=== PATIENT | male | born 1960 | race Caucasian/White ===

== ENCOUNTER 2020-01-05 10:45 | Emergency (ER) | payer SELFPAY ==
[2020-01-05 10:52] VITALS: BP 180/99; PULSE 63; RESP 18; TEMP 36.9; O2SAT 99; BMI 24.3
[2020-01-05 11:15] VITALS: O2SAT 98
--- NOTE | 2020-01-05 11:18 | ECG_ITS ---
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 Measurements Intervals [place] Rate: 64 P: 37 [place]: 168 QRS: -16 QRSD: 96 T: 10 QT: 381 QTc: 393 Interpretive Statements SINUS RHYTHM INCOMPLETE RIGHT BUNDLE BRANCH BLOCK [90+ ms QRS DURATION, TERMINAL R IN V1/V2, 40+ ms S IN I/aVL/V4/V5/V6] No previous ECG available for comparison Electronically Signed On 01-05-2020 20:13:42 CDT by Lenore Dill M.D. [id number]
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
--- NOTE | 2020-01-05 11:20 | PC.NURSE ---
pt also c/o right hip pain and right calf pain
--- NOTE | 2020-01-05 11:32 | PC.NURSE ---
pt to CT by katherin
[2020-01-05 11:42] LABS: Basophils # 0.1 10^3/uL (0.0-0.1); Basophils % 1.1 %; Eosinophils # 0.6 10^3/uL (0.0-0.8); Eosinophils % 8.7 %; Hematocrit 44.3 % (42.0-52.0); Hemoglobin 14.5 g/dL (11.7-16.6); Lymphocytes # 2.2 10^3/uL (0.8-4.8); Mean Corpuscular HGB Conc 32.7 g/dL (30.0-36.0); Mean Corpuscular Hemoglobin 32.3 pg (28.0-34.0); Mean Corpuscular Volume 98.7 fL (80-94); Monocytes # 0.5 10^3/uL (0.2-0.9); Monocytes % 7.5 %; Neutrophils # 3.15 10^3/uL (1.8-7.7); Neutrophils % 48.1 %; Nucleated Red Blood Cells % 0 %; Platelet Count 304 10^3/cmm (130-400); Red Blood Count 4.49 10^6/uL (4.1-5.3); Red Cell Distribution Width 12.2 % (12.1-15.1); White Blood Count 6.6 10^3/uL (4.0-10.0)
[2020-01-05 12:03] LABS: Alanine Aminotransferase 16 U/L (0-41); Albumin Level 4.7 g/dL (3.5-5.2); Alkaline Phosphatase 59 IU/L (40-130); Anion Gap 12.7 (5-19); Aspartate Amino Transferase 14 U/L (0-40); Blood Urea Nitrogen 11 mg/dL (8-23); Calcium 9.3 mg/dL (8.5-10.5); Carbon Dioxide 26 mmol/L (22-29); Chloride 104 mmol/L (98-107); Globulin 2.4 g/dL (1.3-4.6); Glomerular Filtration Rate 98.6 mL/min (90-130); Glucose 136 mg/dL (65-115); Osmolality Calculated 286 mOsm/kg (285-295); Potassium 3.7 mmol/L (3.5-5.1); Sodium 139 mmol/L (136-145); Total Bilirubin 0.3 mg/dL (0.15-1.2); Total Protein 7.1 g/dL (6.6-8.7)
[2020-01-05 12:04] LABS: Troponin(5th) Baseline 9 ng/L (0-15)
[2020-01-05 13:15] VITALS: BP 142/95; PULSE 59; RESP 23; O2SAT 99
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
== END 2020-01-05 13:15 | disposition home or self-care (01) ==
PROVIDERS: Emergency Provider Physician Assistant
DX: I10 Essential (primary) hypertension (principal); G89.29 Other chronic pain; M54.2 Cervicalgia; M54.9 Dorsalgia, unspecified; M25.551 Pain in right hip; R07.89 Other chest pain; V03.90XA Pedestrian on foot injured in collision with car, pick-up truck or van, unspecified whether traffic or nontraffic accident, initial encounter
CPT/HCPCS: 12345; 36415; 71045; 72100; 72125; 73502; 80053; 84484; 85025; 93005; 99283

== ENCOUNTER 2020-03-09 12:17 | Emergency (ER) | payer SELFPAY ==
[2020-03-09 12:27] VITALS: BP 146/95; PULSE 98; RESP 18; TEMP 36.6; O2SAT 97; BMI 26.3
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
--- NOTE | 2020-03-09 12:57 | ED_ITS ---
HPI - Wound/Laceration General: Chief Complaint: Wound/Laceration Stated Complaint: smashed finger Time Seen by Provider: 03/09/20 12:32 Source: patient Mode of arrival: ambulatory Limitations: no limitations History of Present Illness: HPI narrative: Patient was working with a 9 pound, and he stated that he smashed his finger between the hammer and a wedge. He has a laceration to the right middle finger. There is some pain there but he has full range of movement. He is not up-to-date on his tetanus. Onset (ago): minute(s) (30) Patient tetanus UTD: No Context: accidental Associated symptoms: Denies chills, fever(s), nausea or vomiting Review of Systems General: Reports: 10 or more systems reviewed and unremarkable except in HPI and below Const: Denies: fever(s), chills or body aches Eyes: Denies: change in vision or blurry vision ENMT: Denies: throat pain, enlarged tonsils, odynophagia, hoarseness, mouth pain or swelling of lips/tongue Card: Reports: chest pain; Denies: palpitations, irregular heart rhythm, edema or swelling of feet/ankles Resp: Denies: dyspnea, productive cough or non-productive cough GI: Denies: abdominal pain, nausea or vomiting : Denies: flank pain, dysuria, urinary frequency, urinary urgency or urinary hesitancy Musc: Denies: neck pain, back pain or extremity swelling Skin/Breast: Reports: other (laceration to finger); Denies: rash, pruritus or erythema Neuro: Denies: headache(s), numbness in extremities or weakness in extremities Endo: Denies: polyuria, polydipsia or tired all the time Physical Exam Const: COMMON NORMALS: no acute distress, average body habitus, patient oriented x3, no limitations, healthy appearing, alert and well nourished HENMT: COMMON NORMALS: normocephalic, atraumatic and moist oral mucous membranes HEAD & SCALP: normocephalic and atraumatic Neck/C-Spine: COMMON NORMALS: no meningeal signs and no JVD Resp: COMMON NORMALS: normal respiratory effort, No retractions, No use of accessory muscles, clear to auscultation bilaterally and percussion normal AUSCULTATION: clear to auscultation bilaterally PERCUSSION: percussion normal Cardio: COMMON NORMALS: no JVD, regular rate, regular rhythm, S1 normal heart sound present, S2 normal heart sound present, No gallops present (Cardio), No clicks present (Cardio), No murmurs present (Cardio), No rub (Cardio) and Peripheral pulses 2+ throughout RATE: regular rate RHYTHM: regular rhythm HEART SOUNDS: S1 normal heart sound present and S2 normal heart sound present PERIPHERAL PULSES: Peripheral pulses 2+ throughout GI: COMMON NORMALS: Normal to inspection, nondistended, normoactive bowel sounds present, Soft to palpation, non-tender, No hepatosplenomegaly present, no masses and no bruits PALPATION: Yes Soft to palpation and Yes No hepatosplenomegaly present Extremity: COMMON NORMALS: normal to inspection, full ROM, capillary refill normal, no calf tenderness and no pedal edema OTHER: Has a laceration on his left middle finger. It is a complex laceration with 2 longitudinal lacerations and a skin flap in between them. The base of the flap is distal. Finger is swollen. Vascular status is intact, he does have some numbness on the finger. There is significant tenderness Neuro: COMMON NORMALS: patient oriented x3 SENSORIUM/ORIENTATION: Yes alert MENINGEAL SIGNS: Yes no meningeal signs Skin: COMMON NORMALS: no rashes or lesions noted, no wounds, turgor normal, no jaundice, no petechiae and no mottling GENERAL SKIN EXAM: no rashes or lesions noted and turgor normal Procedures Laceration Laceration 1: Site: hand (finger) Side (If applicable): left Size (cm): 4 Description: linear and flap Depth: simple, single layer Local Anesthetic: lidocaine 1% Amount of anesthesia used (mL): 4 Pre-repair: wound explored and irrigated extensively Skin layer closed with: nylon Size (cm): 4-0 Number of sutures: 6 Technique: simple, interrupted Nerve Block Nerve Block 1: Time out performed: Yes Local Anesthetic: lidocaine 1% Side: left Nerve Blocks: digital Procedure Successful: Yes Patient Tolerated Procedure: well Complications: none Additional Comments: Left middle finger digital block Course ED course: 59-year-old male with an open fracture of his left middle finger. Wound was thoroughly cleaned and irrigated, and the wound closed. 2. Difficult closure. He was also given tetanus toxoid and IV antibiotics here in the emergency department. He was discharged home on oral antibiotics and pain medication. He is to follow-up with a hand surgeon. The patient made several comments that he is unlikely to follow-up but he was advised strongly to do so to prevent complications from his injury. Vital Signs: Vital signs: Vital Signs Temperature 97.8 F 03/09/20 12:27 Pulse Rate 95 03/09/20 15:30 Respiratory Rate 18 03/09/20 12:27 Blood Pressure 140/89 03/09/20 15:30 Pulse Oximetry 96 03/09/20 15:30 MDM - Wound/Laceration MDM Narrative: Medical decision making narrative: Patient with an open fracture of his left middle finger. Wound was irrigated thoroughly, closed with sutures and he was given IV antibiot ics in the emergency department. He was discharged home on oral antibiotics pain medication. He is to follow-up with the hand surgeon as soon as possible. Imaging Data^: Xray Ortho: Radiologist's impression: [place] [address] XRay Report Signed Patient: Saul Ho #: [id number] : 1960Acct#:[id number] Age/Sex: 59 / MADM Date: 03/09/20 [facility] Attending Dr: Ordering Provider/Ordering MD: Katarina [place] [facility] [place] Service: 03/09/20 Procedure(s): XR hand LT 2V [id number] Accession Number(s): [id number] Report Number: [id number] PROCEDURE INFORMATION: Exam: XR Left Hand Exam date and time: 03/09/2020 12:38 PM Age: 59 years old Clinical indication: Injury or trauma; Initial encounter; Crushing; Left; Middle finger TECHNIQUE: Imaging protocol: XR Left hand. Views: 1 or 2 views. COMPARISON: No relevant prior studies available. FINDINGS: Bones/joints: There is a comminuted fracture of the distal left 3rd phalanx. The fracture does not extend to the articular surface. There is deformity of the left 3rd metacarpal head which is likely old. Soft tissues: Normal. XR/XR hand LT 2V [id number] IMPRESSION: There is a comminuted fracture of the distal left 3rd phalanx. Dictated By:Consuelo Miller MD Signed By:Consuelo Miller MDSigned Date/Time:03/09/20 1430 DD/ 1428 Discharge Plan Discharge Patient Disposition: Home Clinical Impression: Open fracture of distal phalanx, Finger laceration Condition: Stable Prescriptions: [place] 5-325 mg tablet 1 tab PO Q8H PRN (Reason: fracture finger) Qty: 20 RF: 0 Bactrim DS 800-160 mg tablet 1 tab PO BID 7 Days Qty: 14 RF: 0 Continued Allergy Relief(diphenhydramin) 1 tab PO DAILY RF: 0 amlodipine 5 mg tablet 5 mg PO DAILY Qty: 30 RF: 0 Discharge Orders: Discharge Order (Routine); Ordered 03/09/20 Ordered By: Katarina Jackson Discharge Diet: Usual diet Discharge Activity: Increase activity as tolerated Patient Instructions: Finger Fracture (ED), Finger Laceration (ED) Activity Restrictions/Additional Instructions: Return for any new or worsening symptoms. You will be contacted by case management to schedule an appointment with the hand surgeon in [place]. Take the antibiotic as prescribed and pain medicine as needed. Clean the wound daily with soap and water and cover with antibiotic ointment and a sterile dressing. Use the splint for pain control also. Interventions: ED Discharge Assessment Last Done: 03/09/20 15:30 ED Charges Last Done: 03/09/20 14:45 Discharge Date/Time: 03/09/20 15:30 Coding Level of Care Code ED Education Paraprofessional for Emily Rojas
[2020-03-09] MEDS: tetanus-dipt-pertussis 0.5 mL SDV IM (13:13)
[2020-03-09] MEDS: ceFAZolin 1,000 MG in sodium chloride 0.9% (plus) 50 ML 100 MG IV (14:04)
[2020-03-09] MEDS: silver nitrate applicator 2 EACH (14:44)
[2020-03-09 15:30] VITALS: BP 140/89; PULSE 95; O2SAT 96
--- NOTE | 2020-03-11 12:35 | DCPLANNER ---
associate manager had message to schedule a follow up appointment for patient with Dr. Middleton, hand surgeon, with [facility]. associate manager faxed patients information to the clinic. associate manager will call for appointment information.
--- NOTE | 2020-03-19 12:34 | DCPLANNER ---
Patient has a follow up appointment scheduled for Wednesday, March 20, 2020 at 9:[address] Middleton at [facility] in [place]. change control manager was told that patient is aware of appointment.
--- NOTE | 2020-03-26 11:30 | DCPLANNER ---
Patient had a follow up appointment scheduled for 03.20.20 with [facility] - patient did attend appointment.
== END 2020-03-09 15:30 | disposition home or self-care (01) ==
PROVIDERS: Emergency Provider Family Medicine
DX: S62.633B Displaced fracture of distal phalanx of left middle finger, initial encounter for open fracture (principal); W23.0XXA Caught, crushed, jammed, or pinched between moving objects, initial encounter; Z23 Encounter for immunization
CPT/HCPCS: 12002; 12345; 73120; 90471; 90715; 96365; 99283; J0690

== ENCOUNTER 2020-12-02 11:24 | Outpatient (CLI) | payer SELFPAY ==
--- NOTE | 2020-12-02 11:29 | US_ITS ---
WS: [id number] RENAL ULTRASOUND HISTORY: Flank pain COMPARISON: None available. TECHNIQUE: 2-D and color Doppler imaging of the kidney submitted. Right kidney: 10.8 cm x 5.6 cm x 4.6 cm. Normal echogenicity with no hydronephrosis or mass. Left kidney: 11.6 cm x 6.0 cm x 4.0 cm. Normal echogenicity with no hydronephrosis or mass. Aorta: Normal. Urinary Bladder: Normal distention. Prostate gland is heterogeneous and mildly enlarged encroaching into the urinary bladder. Prostate me asures 4.2 x 4.0 x 3.6 cm. No increased vascularity. US/US renal BI* [id number] IMPRESSION: 1. Normal kidneys. 2. Enlarged heterogeneous prostate gland.
== END 2020-12-02 11:25 | disposition home or self-care (01) ==
LOC: RAD 11:27
PROVIDERS: Visit Provider Family Medicine
DX: R10.9 Unspecified abdominal pain (principal); N40.0 Benign prostatic hyperplasia without lower urinary tract symptoms
CPT/HCPCS: 76770

== ENCOUNTER → 2021-02-10 09:54 | Outpatient (BNVA) | payer OTHER, SELFPAY | PROVIDERS: Visit Provider Surgery | DX: Z20.822 Contact with and (suspected) exposure to COVID-19 (principal) | CPT/HCPCS: 87635 ==

== ENCOUNTER 2021-02-13 08:50 | Day surgery (SDC) | payer SELFPAY ==
[2021-02-11 12:50] VITALS: BMI 24.3
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
[2021-02-13 09:37] VITALS: BP 149/83; PULSE 65; RESP 18; TEMP 36.6; O2SAT 100
--- NOTE | 2021-02-13 09:42 | P.HP_ITS ---
Same Day Surgery H&P Indication for Procedure/HPI DATE OF PROCEDURE: February 13, 2021 CHIEF COMPLAINT/INDICATIONFOR SURGICAL PROCEDURE: screening colonoscopy PREOP DIAGNOSIS: screening colonoscopy PLANNED PROCEDRUE: Operation Date: 02/13/21 10:00 Proposed Procedures p Colonoscopy 98920 z12.11(Not Applicable) - Misael Light MD Medications/Allergies* Home Medications Medication Instructions Recorded Confirmed Type aspirin 81 mg tablet,delayed 81 mg PO DAILY 12/04/20 02/13/21 History release hydrochlorothiazide 50 mg tablet 50 mg PO DAILY 12/04/20 02/13/21 History amlodipine 10 mg PO DAILY 02/11/21 02/13/21 History cyclobenzaprine 10 mg PO DAILY 02/11/21 02/13/21 History hydrocodone-acetaminophen 1 tab PO BID PRN 02/11/21 02/13/21 History naproxen 500 mg PO TID PRN 02/11/21 02/13/21 History tamsulosin 0.4 mg PO DAILY 02/11/21 02/13/21 History Allergies/Adverse Reactions Allergy/AdvReac Type Severity Reaction Status Date / Time Penicillins Allergy ADR-Nausea Verified 02/13/21 09:30 Pertinent Exam Findings alert, oriented x 3 and regular rate & rhythm Recommendations Surgery/Procedure today Coding Level of Care Code Acute Repairer Screen Crusher for Emily Rojas
[2021-02-13] MEDS: sodium chloride 0.9% 1,000 ML 30 ML IV (09:44)
[2021-02-13 10:44] VITALS: BP 97/72; PULSE 74; RESP 18; TEMP 36.5; O2SAT 96
[2021-02-13 11:13] VITALS: BP 112/88; PULSE 71; RESP 18; O2SAT 98
--- NOTE | 2021-02-13 11:15 | ANE.PACU2 ---
Inpatient post-anesthesia follow up: Airway intact: Yes Vital signs: Temperature 97.7 F Pulse Rate 71 Respiratory Rate 18 Blood Pressure 112/88 Pulse Oximetry 98 Oxygen Delivery Me thod Room Air Oxygen Flow Rate Fraction of Inspir ed Oxygen Hydration adequate: Yes Mental status: Baseline
== END 2021-02-13 11:38 | disposition home or self-care (01) ==
PROVIDERS: PCP Orthopaedic Surgery; Visit Provider Surgery
PROC: 0DJD8ZZ Inspection of Lower Intestinal Tract, Via Natural or Artificial Opening Endoscopic (ICD-10-PCS; CPT 45378; principal; 2021-02-13 10:00)
DX: Z12.11 Encounter for screening for malignant neoplasm of colon (principal); D12.2 Benign neoplasm of ascending colon; K57.30 Diverticulosis of large intestine without perforation or abscess without bleeding; Z79.82 Long term (current) use of aspirin
CPT/HCPCS: 45380; 88305; 96360; J7030

== ENCOUNTER → 2024-11-30 08:41 | Outpatient (BNVA) | payer MEDICARE, MEDICAID, SELFPAY | PROVIDERS: PCP Nurse Practitioner Family; Visit Provider Dermatology | DX: L82.1 Other seborrheic keratosis (principal); L57.2 Cutis rhomboidalis nuchae; Z08 Encounter for follow-up examination after completed treatment for malignant neoplasm; Z85.828 Personal history of other malignant neoplasm of skin; C44.41 Basal cell carcinoma of skin of scalp and neck | CPT/HCPCS: 13132; 17311; 99213 ==

== ENCOUNTER → 2025-01-30 08:13 | Outpatient (BNVA) | payer MEDICARE, SELFPAY | PROVIDERS: PCP Nurse Practitioner Family; Visit Provider Nurse Practitioner Family | DX: S60.012A Contusion of left thumb without damage to nail, initial encounter (principal); X58.XXXA Exposure to other specified factors, initial encounter; L81.4 Other melanin hyperpigmentation; Z08 Encounter for follow-up examination after completed treatment for malignant neoplasm; Z85.828 Personal history of other malignant neoplasm of skin; L57.0 Actinic keratosis | CPT/HCPCS: 17000; 99213 ==